=== PATIENT | male | born 2000 | race Two or more races ===

== ENCOUNTER 2022-03-23 01:25 | Inpatient (IN) | payer OTHER ==
[~2022-03-23] VITALS: Ht 177.8 cm; Wt 101.6 kg
[2022-03-23] MEDS ORDERED: ASPIRIN 81MG TABLET PO ONE (08:00)
[2022-03-23 08:31] LABS: BASOPHILS % 0.4 % (0.0-2.0); EOSINOPHILS % 0.9 % (0.0-5.0); HEMATOCRIT. 47.5 % (42.0-52.0); HEMOGLOBIN. 16.2 g/dL (14.0-18.0); LYMPHOCYTES % 27.2 % (20.0-50.0); MEAN CORPUSCULAR HEMOGLOBIN 28.1 pg (28.0-32.0); MEAN CORPUSCULAR VOLUME 82.2 fL (80.0-94.0); MEAN PLATELET VOLUME 9.3 fl (7.4-10.4); MONOCYTES % 6.9 % (2.0-8.0); NEUTROPHILS % 64.6 % (40.0-76.0); PLATELET 272 x1000/uL (130-400); RED BLOOD CELL COUNT 5.77 mill/uL (4.7-6.1)
[2022-03-23 08:36] LABS: CHLORIDE 105 mEq/L (98-107)
[2022-03-23] MEDS ORDERED: NITROGLYCERIN 0.4MG TABLET SL SL PRN (16:45)
[2022-03-23] MEDS ORDERED: CLONIDINE 0.1MG TABLET PO PRN (16:45)
[2022-03-23] MEDS ORDERED: ONDANSETRON HCL 4MG/2ML INJ IV PRN (16:45)
[2022-03-23 17:06] VITALS: BP 131/70
[2022-03-23 20:00] VITALS: BP 131/82
[2022-03-24] VITALS (7 sets, daily range): BP systolic 122–153; BP diastolic 65–88
[2022-03-24 07:18] LABS: BASOPHILS % 0.5 % (0.0-2.0); EOSINOPHILS % 0.6 % (0.0-5.0); HEMATOCRIT. 47.1 % (42.0-52.0); HEMOGLOBIN. 16.2 g/dL (14.0-18.0); LYMPHOCYTES % 23.2 % (20.0-50.0); MEAN CORPUSCULAR HEMOGLOBIN 28.4 pg (28.0-32.0); MEAN CORPUSCULAR VOLUME 82.5 fL (80.0-94.0); MEAN PLATELET VOLUME 9.6 fl (7.4-10.4); MONOCYTES % 5.2 % (2.0-8.0); NEUTROPHILS % 70.5 % (40.0-76.0); PLATELET 266 x1000/uL (130-400); RED BLOOD CELL COUNT 5.71 mill/uL (4.7-6.1); RED CELL DISTRIBUTION WIDTH 12.8 % (11.6-14.6)
[2022-03-24 07:27] LABS: CHLORIDE 105 mEq/L (98-107)
[2022-03-24 07:33] LABS: HDL CHOLESTEROL 43 mg/dL (40-59); LDL CHOLESTEROL 90 mg/dL (5-100)
[2022-03-24] MEDS ORDERED: FAMOTIDINE 20MG/2ML VIAL IV SCH (09:00)
[2022-03-24] MEDS: ASPIRIN 81MG TABLET PO SCH (09:35)
[2022-03-24] MEDS ORDERED: METOPROLOL TARTRATE 5MG/5ML VIAL IV NR (11:30)
[2022-03-24] MEDS ORDERED: IOHEXOL-350 100 ML BOTTLE ONE (11:50)
[2022-03-24] MEDS ORDERED: NITROGLYCERIN SPRAY/4.9GM CAN TL NR (12:30)
[2022-03-24 15:31] LABS: *AMPHETAMINES SCREEN URINE NEGATIVE (NEGATIVE); *BARBITURATES SCREEN URINE NEGATIVE (NEGATIVE); *BENZODIAZEPINES SCREEN URINE NEGATIVE (NEGATIVE); *COCAINE SCREEN URINE NEGATIVE (NEGATIVE); CANNABINOID URINE SCREEN NEGATIVE (NEGATIVE); METHADONE URINE SCREEN NEGATIVE (NEGATIVE); OPIATES URINE SCREEN NEGATIVE (NEGATIVE); PHENCYCLIDINE URINE SCREEN NEGATIVE (NEGATIVE)
[2022-03-24] MEDS ORDERED: ZOLPIDEM TARTRATE 5MG TABLET PO PRN (19:15)
[2022-03-24] MEDS: PANTOPRAZOLE 40MG DR TABLET PO SCH (21:36)
[2022-03-25 04:00] VITALS: BP 123/69
[2022-03-25 07:37] LABS: HEMATOCRIT 48.5 % (42.0-52.0); HEMOGLOBIN 17.1 g/dL (14.0-18.0); MEAN CORPUSCULAR HEMOGLOBIN 28.8 pg (28.0-32.0); MEAN CORPUSCULAR VOLUME 81.6 fL (80.0-94.0); PLATELET 287 x1000/uL (130-400); RED BLOOD CELL COUNT 5.94 mill/uL (4.7-6.1)
[2022-03-25 07:49] LABS: CHLORIDE 104 mEq/L (98-107)
[2022-03-25 08:00] VITALS: BP 124/74
[2022-03-25] MEDS: PANTOPRAZOLE 40MG DR TABLET PO SCH (08:45)
[2022-03-25] MEDS: ASPIRIN 81MG TABLET PO SCH (08:45)
[2022-03-25 10:52] VITALS: BP 125/72
== END 2022-03-25 11:00 | disposition home or self-care (01) | DRG 313 ==
LOC: ER 01:25 → 8WST 14:33 → EDBEDREQ 14:35 → EDBEDREQTM 14:35 → ENRESERV 15:10 → CANRESERV 15:10 → ENRESERV 15:18
PROVIDERS: ADMIT Hospitalist; ATTEND Hospitalist
DX: R07.89 Other chest pain (principal); R20.2 Paresthesia of skin; R00.1 Bradycardia, unspecified; E80.6 Other disorders of bilirubin metabolism; R73.9 Hyperglycemia, unspecified; Z20.822 Contact with and (suspected) exposure to COVID-19; Z82.49 Family history of ischemic heart disease and other diseases of the circulatory system
CPT/HCPCS: 36415; 71045; 75571; 80048; 80053; 80061; 80305; 83880; 84484; 85025; 85027; 85379; 87426; 93005; 93306; 99285; J3490; Q9967